=== PATIENT | male | born 1935 | race Caucasian/White ===

== ENCOUNTER 2023-10-05 07:34 | Day surgery (SDC) | payer OTHER, BC ==
[~2023-10-05] VITALS: Ht 172.7 cm; Wt 59.0 kg
[~2023-10-05 07:34] MED LIST: ASPI-524 PO; DEXL30CA3 PO; METO25TA6 PO; OXYB-31 PO; PRAV40TA63 PO; TAMS-11 PO; VITA-285 PO
[2023-10-05 08:26] LABS: BASOPHILS % (AUTO) 0.4 % (0.0-2.0); EOSINOPHILS # (AUTO) 0.2 K/uL (0.0-0.4); EOSINOPHILS % (AUTO) 2.7 % (0.0-4.0); HEMATOCRIT 33.5 % (36-54); HEMOGLOBIN 11.4 g/dL (14.0-18.0); LYMPHOCYTES # (AUTO) 1.1 K/uL (1.0-5.5); LYMPHOCYTES % (AUTO) 12.2 % (20.5-51.5); MEAN CORPUSCULAR HEMOGLOBIN 33 pg (27-31); MEAN CORPUSCULAR HGB CONC 34 % (32-36); MEAN CORPUSCULAR VOLUME 97 fL (79.0-98.0); MONOCYTES # (AUTO) 0.9 K/uL (0.0-1.0); MONOCYTES % (AUTO) 9.7 % (1.7-9.3); NEUTROPHILS # (AUTO) 6.6 K/uL (1.8-7.7); PLATELET COUNT (AUTO) 434 K/uL (130-430); RED BLOOD CELL COUNT(AUTO) 3.44 MIL/uL (4.2-6.2); RED CELL DISTRIBUTION WIDTH 14.8 % (9.0-15.0); WHITE BLOOD COUNT (AUTO) 8.8 K/uL (4.8-10.8)
[2023-10-05 08:49] LABS: ALANINE AMINOTRANSFERASE 14 U/L (12-78); ALBUMIN 2.9 g/dL (3.4-4.8); ANION GAP 5 (5-15); ASPARTATE AMINOTRANSFERASE 13 U/L (10-37); CALCIUM 9.2 mg/dL (8.4-11.0); CARBON DIOXIDE 32 mmol/L (23-29); CHLORIDE 103 mmol/L (98-107); CREATININE 1.06 mg/dL (0.55-1.30); GLUCOSE 121 mg/dL (74-106); POTASSIUM 4.4 mmol/L (3.5-5.1); SODIUM SERUM 140 mmol/L (136-145); TOTAL BILIRUBIN 0.3 mg/dL (0.0-1.0); TOTAL PROTEIN, SERUM 7.4 g/dL (6.4-8.3); UREA NITROGEN, BLOOD 19 mg/dL (8-21)
[2023-10-05] MEDS ORDERED: OXYMETAZOLINE HCL 0.05% NASAL SPRAY NS ONE (09:39)
[2023-10-05] MEDS ORDERED: ACETAMINOPHEN 325 MG TABLET ONE (10:36)
[2023-10-05] MEDS ORDERED: ACETAMINOPHEN 500 MG TABLET ONE (10:41)
[2023-10-05] MEDS: ACETAMINOPHEN 500 MG TABLET PO ONE (10:48)
[2023-10-05 13:14] VITALS: O2SAT 97
[2023-10-05 14:20] VITALS: BP_SYST 149; PULSE 69; RESP 18
== END 2023-10-05 12:50 | disposition home or self-care (01) ==
LOC: SDS 07:34 → SMU 07:35 → SDS 12:50
PROVIDERS: ATTEND Otolaryngology
DX: H65.22 Chronic serous otitis media, left ear (principal); H68.101 Unspecified obstruction of Eustachian tube, right ear; E11.40 Type 2 diabetes mellitus with diabetic neuropathy, unspecified; J31.0 Chronic rhinitis; H90.3 Sensorineural hearing loss, bilateral; K21.9 Gastro-esophageal reflux disease without esophagitis; M19.90 Unspecified osteoarthritis, unspecified site; Z79.899 Other long term (current) drug therapy; Z98.890 Other specified postprocedural states; Z82.49 Family history of ischemic heart disease and other diseases of the circulatory system
CPT/HCPCS: 69436; 80053; 85025; 36415; J2704; J7120; L8699